=== PATIENT | male | born 1980 | race Caucasian/White ===

== ENCOUNTER 2016-08-23 23:43 | Emergency (ER) | payer SELFPAY ==
[~2016-08-23] VITALS: Ht 172.7 cm; Wt 81.8 kg
[2016-08-23 23:47] VITALS: BP 141/91; PULSE 96; RESP 20; TEMP 97.7; O2SAT 97
--- NOTE | 2016-08-24 01:56 | PD ---
HPI Chief Complaint: Alcohol/Drug Intoxication Time Seen by Provider: 23:45 Travel History International Travel<30 days: No Contact w/Intl Traveler<30days: No Traveled to known affect area: No History of Present Illness HPI 36-year-old male arrives to the ER by EMS. He was attending the [employer] racing events and drinking alcohol. He fell asleep in an RV on a couch. His friends were concerned and called EMS. 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 He denies drug abuse. [facility] Past Medical History Medical History: Denies Significant Hx Past Surgical History Surgical History: No Previous Surgery Social History Alcohol Use: Yes Tobacco Use: No Substance Use: No Allergies-Medications (Allergen,Severity, Reaction): Coded Allergies: Bee Sting (Verified Allergy, Severe, 08/23/16) " " PT [facility] Reported Meds & Prescriptions Reported Meds & Active Scripts Active No Active Prescriptions or Reported Medications Review of Systems ROS Limitations: Intoxication Physical Exam Narrative GENERAL: 36-year-old male well-nourished well-developed EtOH on breath SKIN: Warm and dry. HEAD: Atraumatic. Normocephalic. EYES: Pupils equal and round. No scleral icterus. No injection or drainage. ENT: No nasal bleeding or discharge. Mucous membranes pink and moist. NECK: Trachea midline. No JVD. CARDIOVASCULAR: Regular rate and rhythm. No murmur appreciated. RESPIRATORY: No accessory muscle use. Clear to auscultation. Breath sounds equal bilaterally. GASTROINTESTINAL: Abdomen soft, non-tender, nondistended. Hepatic and splenic margins not palpable. MUSCULOSKELETAL: No obvious deformities. No clubbing. No cyanosis. No edema. NEUROLOGICAL: Cranial nerves appear symmetric. Moves all extremities in a coordinated fashion. Comprehensible speech. PSYCHIATRIC: EtOH intoxication. Responsive to command. Answers questions with single words. Data Data Last Documented VS Vital Signs Date Time Temp Pulse Resp B/P Pulse Ox O2 Delivery O2 Flow Rate FiO2 08/23/16 23:47 97.7 96 20 141/91 97 VS reviewed Orders Oximetry (08/24/16 00:50) MDM Medical Decision Making Medical Screen Exam Complete: Yes Emergency Medical Condition: Yes Differential Diagnosis Alcohol intoxication, alcohol overdose, polysubstance abuse, occult trauma Narrative Course We'll observe the patient here overnight. When he is able to walk with a normal gait, speak clearly and articulately, and has a sober adult circuit board repair technician to escort him back home, he can be discharged. Transfer to [facility] overnight w oximetry monitoring ok. Diagnosis Primary Impression: Alcohol intoxication Qualified Code: F10.120 - Alcohol intoxication, uncomplicated Referrals: [facility] Additional Instructions: You have a choice when it comes to health care, and we are glad that you chose [facility]. Hopefully, we have met your expectations on today's visit. You are welcome to return to [facility] at any time, as we are committed to meeting the health care needs of our community. Med/Other Pt SpecificInfo: No Change to Meds Scripts No Active Prescriptions or Reported Meds Disposition: 01 DISCHARGE HOME Condition: Stable Nish Garcia MD Aug 24, 2016 01:56
[2016-08-24 02:06] VITALS: BP 131/89; PULSE 101; RESP 18; O2SAT 95; O2SAT 99
== END 2016-08-24 06:11 | disposition home or self-care (01) ==
LOC: NEPA 23:43
DX: F10.120 Alcohol abuse with intoxication, uncomplicated (principal)
CPT/HCPCS: 99283